=== PATIENT | male | born 1995 | race Two or more races ===

== ENCOUNTER 2019-10-21 22:23 | Inpatient (IN) | payer MEDICAID ==
[~2019-10-21] VITALS: Ht 165.1 cm; Wt 64.8 kg
[2019-10-21 23:00] LABS: Urine Bacteria FEW /hpf (None Seen); Urine Blood Negative /uL (Negative); Urine Mucus FEW (None Seen); Urine Specific Gravity 1.017 (1.001-1.035); Urine WBC 1 /hpf (0 - 3)
[2019-10-21 23:07] LABS: Basophils # (auto) 0.1 10 ^3/uL (0-0.2); Basophils % (auto) 0.5 % (0.0-2.0); Eosinophils # (auto) 0 10 ^3/uL (0-0.8); Eosinophils % (auto) 0.1 % (0.0-7.0); Hematocrit 49.7 % (41.0-53.0); Hemoglobin 16.7 g/dL (13.5-17.5); Lymphocytes % (auto) 15.7 % (10.0-50.0); Mean Corpuscular Hemoglobin 30.3 pg (28.0-32.0); Mean Corpuscular Hgb Conc. 33.6 g/dL (32.0-36.0); Mean Corpuscular Volume 90.2 fL (80.0-100.0); Monocytes # (auto) 0.9 10 ^3/uL (0-1.3); Monocytes % (auto) 7.1 % (0.0-12.0); Neutrophils # (auto) 9.6 10 ^3/uL (1.6-8.6); Neutrophils % (auto) 76.6 % (37.0-80.0); Nucleated Red Blood Cells % 0.1 %; Platelet Count (auto) 431 10^3/uL (140-450); Red Blood Cells 5.51 10^6/uL (4.5-5.90); Red Cell Distribution Width 13.6 % (11.8-14.3); White Blood Cell 12.5 10^3/uL (4.4-10.8)
[2019-10-21 23:28] LABS: Alanine Aminotransferase 35 U/L (16-61); Albumin 4.5 g/dL (3.4-5.0); Amylase 133 U/L (25-115); Anion Gap 8 (5-15); Aspartate Aminotransferase 27 U/L (15-37); BUN/Creatinine Ratio 18.7; Blood Alcohol < 3.0 mg/dL (0-5); Blood Urea Nitrogen 20 mg/dL (7-18); Calcium 9.8 mg/dL (8.5-10.1); Carbon Dioxide 27 mmol/L (21-32); Chloride 100 mmol/L (98-107); GFR African American 109 mL/min; GFR Non-African American 90 mL/min; Glucose 142 mg/dL (74-106); Lipase 1196 U/L (73-393); Potassium 3.9 mmol/L (3.5-5.1); Sodium 135 mmol/L (136-145)
[2019-10-21 23:30] LABS: Alkaline Phosphatase 147 U/L (45-117); Bilirubin, Total 1.4 mg/dL (0.2-1.0)
[2019-10-21] MEDS ORDERED: SODIUM CHLORIDE 0.9% 1,000 ML IV ONE (23:45)
[2019-10-21] MEDS ORDERED: metroNIDAZOLE 500MG/100ML 100 ML IV ONE (23:45)
[2019-10-21] MEDS ORDERED: MORPHINE SULFATE 4 MG/ML SYR/VIAL IV ONE (23:45)
[2019-10-21] MEDS ORDERED: ONDANSETRON HCL 4 MG/2 ML VIAL IV ONE (23:45)
[2019-10-22] MEDS ORDERED: MORPHINE SULFATE 4 MG/ML SYR/VIAL IV ONE (02:15)
[2019-10-22] MEDS: SODIUM CHLORIDE 0.9% 1,000 ML IV SCH ×3 (02:26→04:05)
[2019-10-22] MEDS: cefTRIAXone 1GM/50ML D5W 50 ML IV SCH ×2 (02:26→04:06)
--- NOTE | 2019-10-22 03:25 | NUR ---
MS admit from [facility]OPE[facility] DAVIDSON,SUGAR admitted to tele/MS after SBAR received. Patient oriented to RADHA ROTHMAN RN primary RN, MST unit, room 296, bed B, and unit policies regarding patient care and visiting hours. Patient weighed by bedscale and encouraged to call if they need something. All questions and concerns addressed, patient verbalized understanding. Note: PATIENT RESTING IN BED, AWAKE, ALERT AND ORIENTED X4, NO S/S OF DISTRESS OR SOB. BED IN LOWEST LOCKED POSITION, SIDE RAILS UP X2, CALL LIGHT WITHIN REACH, PATIENT ABLE TO TURN INDEPENDENTLY. WILL CONTINUE TO MONITOR Q1 PRN.
[2019-10-22 05:20] VITALS: BP 147/80
[2019-10-22] MEDS: MORPHINE SULFATE 4 MG/ML SYR/VIAL IV PRN ×3 (06:45→21:31)
[2019-10-22] MEDS: ONDANSETRON HCL 4 MG/2 ML VIAL IV PRN (06:46)
--- NOTE | 2019-10-22 08:00 | NUR ---
Opening Note Assumed patient care from GEOFFREY Rn.
[2019-10-22 09:00] VITALS: BP 138/83
[2019-10-22] MEDS: PANTOPRAZOLE 40 MG/10 ML VIAL INJ IV SCH (09:56)
[2019-10-22 12:31] LABS: Calcium 9.3 mg/dL (8.5-10.1); Potassium 3.7 mmol/L (3.5-5.1)
[2019-10-22 12:34] LABS: BUN/Creatinine Ratio 16.5
[2019-10-22 13:00] VITALS: BP 120/82
[2019-10-22] MEDS: FOLIC ACID 1 MG, MULTIPLE VITAMIN 10 ML, MAGNESIUM SULF SDV 50% 8 MEQ, THIAMINE INJ 100... INJ SCH ×5 (15:05)
[2019-10-22 22:00] VITALS: BP 141/90
[2019-10-23 05:00] VITALS: BP 143/94
[2019-10-23 05:58] LABS: Basophils # (auto) 0.1 10 ^3/uL (0-0.2); Basophils % (auto) 0.7 % (0.0-2.0); Eosinophils # (auto) 0.2 10 ^3/uL (0-0.8); Eosinophils % (auto) 2.3 % (0.0-7.0); Hematocrit 41.9 % (41.0-53.0); Hemoglobin 14.4 g/dL (13.5-17.5); Lymphocytes # (auto) 2.2 10 ^3/uL (0.4-5.4); Lymphocytes % (auto) 29.4 % (10.0-50.0); Mean Corpuscular Hemoglobin 31.4 pg (28.0-32.0); Mean Corpuscular Hgb Conc. 34.5 g/dL (32.0-36.0); Mean Corpuscular Volume 91.2 fL (80.0-100.0); Monocytes # (auto) 0.5 10 ^3/uL (0-1.3); Monocytes % (auto) 6.4 % (0.0-12.0); Neutrophils # (auto) 4.5 10 ^3/uL (1.6-8.6); Neutrophils % (auto) 61.2 % (37.0-80.0); Nucleated Red Blood Cells % 0.1 %; Platelet Count (auto) 294 10^3/uL (140-450); Red Blood Cells 4.59 10^6/uL (4.5-5.90); Red Cell Distribution Width 13.6 % (11.8-14.3); White Blood Cell 7.4 10^3/uL (4.4-10.8)
[2019-10-23 06:14] LABS: Albumin 3.3 g/dL (3.4-5.0); Calcium 8.8 mg/dL (8.5-10.1); Potassium 3.5 mmol/L (3.5-5.1)
[2019-10-23 06:15] LABS: Amylase 78 U/L (25-115); Lipase 495 U/L (73-393)
[2019-10-23 06:19] LABS: BUN/Creatinine Ratio 12.2; Bilirubin, Total 0.5 mg/dL (0.2-1.0); Total Protein 6.6 g/dL (6.4-8.2)
--- NOTE | 2019-10-23 08:00 | NUR ---
RECEIVED PATIENT ALERT AND ORIENTED X4, NOT IN DISTRESS, CLEAR LUNG SOUNDS IN BILATERAL UPPER AND LOWER LOBES RR=18 DEEP BREATHING AND COUGHING WAS ENCOURAGED, DEMONSTRATED WELL, HEART R=78, ABDOMEN SOFT WITH ACTIVE BS, LAST BM=10/21/19 REPORTED, SKIN INTACT WARM TO TOUCH, RADIAL AND PEDAL PULSES PALPABLE, CAP REFILL <3 SECONDS, RESTING ON BED, HEAD OF BED ELEVATED, BED ON LOW POSITION, RAILS UP X2, CALL LIGHT ON REACH, WILL CONTINUE MONITORING.
[2019-10-23] MEDS: ONDANSETRON HCL 4 MG/2 ML VIAL IV PRN ×2 (08:47→17:31)
[2019-10-23] MEDS: MORPHINE SULFATE 4 MG/ML SYR/VIAL IV PRN ×2 (08:47→17:31)
[2019-10-23 09:00] VITALS: BP 144/90
[2019-10-23] MEDS: PANTOPRAZOLE 40 MG/10 ML VIAL INJ IV SCH (10:14)
[2019-10-23 10:58] VITALS: BP 144/90
--- NOTE | 2019-10-23 11:00 | NUR ---
AMBULATED AROUND THE UNIT BACK TO THE BED, RESTING ON BED, NOT IN DISTRESS, DENIED PAIN, WILL CONTINUE MONITORING.
[2019-10-23] MEDS: SODIUM CHLORIDE 0.9% 1,000 ML IV SCH (11:45)
[2019-10-23] MEDS: FOLIC ACID 1 MG, MULTIPLE VITAMIN 10 ML, MAGNESIUM SULF SDV 50% 8 MEQ, THIAMINE INJ 100... INJ SCH ×5 (12:16)
[2019-10-23 13:02] VITALS: BP 146/90
--- NOTE | 2019-10-23 16:53 | NUR ---
TOLERATED REGULAR DIET LUNCH WELL, NOT IN DISTRESS, RESTING ON BED, PENDING D/C HOME TODAY, WILL CONTINUE MONITORING.
--- NOTE | 2019-10-23 16:57 | NUR ---
D/C EDUCATION AND INFORMATION PROVIDED, [place] [facility] [place] [address] [address]. [place] [id number] [place] [phone], [facility] [phone] [facility] [address] AND [facility] ON [phone] AT [address] PROVIDED, VERBALIZED UNDERSTANDING, RESTING ON BED AND WAITING FOR A RIDE TO ARRIVE.
[2019-10-23 17:00] VITALS: BP 133/93
--- NOTE | 2019-10-23 18:34 | NUR ---
TOLERATED 100% OF DINNER LIZZIE, D/C RT. AC IV SITE, TOLERATED WELL, NOT IN DISTRESS, DENIED PAIN, T=97.8 RR=18 SAT=98% P=72 KM=663/84, WC PROVIDED, D/C HOME WALKING, TOOK ALL BELONGINGS AND LEFT NOTHING BEHIND.
== END 2019-10-23 18:30 | disposition home or self-care (01) | DRG 282 ==
LOC: ER 22:23 → OVERFLOW 22:24 → WEST WING 10-22 03:15
PROVIDERS: ADMIT Nurse Practitioner; ATTEND Internal Medicine
DX: K85.20 Alcohol induced acute pancreatitis without necrosis or infection (principal); R65.10 Systemic inflammatory response syndrome (SIRS) of non-infectious origin without acute organ dysfunction; D72.829 Elevated white blood cell count, unspecified; F10.10 Alcohol abuse, uncomplicated; E86.0 Dehydration; Z90.49 Acquired absence of other specified parts of digestive tract; Z71.41 Alcohol abuse counseling and surveillance of alcoholic
CPT/HCPCS: 36415; 74176; 80048; 80053; 80320; 81001; 82140; 82150; 83690; 85025; 96361; 96365; 96375; 96376; C9113; G0378; J0696; J2405; J3490